=== PATIENT | female | born 1955 | race Two or more races ===

== ENCOUNTER 2020-04-15 15:25 | Emergency (ER) | payer MEDICARE ==
[~2020-04-15] VITALS: Ht 157.5 cm; Wt 92.4 kg
[2020-04-15 16:03] VITALS: BP 161/82
[2020-04-15] MEDS ORDERED: HYDROcodone/acetaminophen 5mg/325mg tablet PO ONE (18:05)
[2020-04-15] MEDS ORDERED: GABA300C PO (18:09)
== END 2020-04-15 18:35 | disposition home or self-care (01) ==
LOC: ER 15:26
DX: M25.512 Pain in left shoulder (principal); I10 Essential (primary) hypertension; E11.9 Type 2 diabetes mellitus without complications; W19.XXXA Unspecified fall, initial encounter; Y93.89 Activity, other specified; Y92.89 Other specified places as the place of occurrence of the external cause; Y99.8 Other external cause status
CPT/HCPCS: 99282; 99283

== ENCOUNTER 2021-12-17 01:48 | Inpatient (IN) | payer MEDICARE ==
[~2021-12-17] VITALS: Ht 154.9 cm; Wt 86.4 kg
[2021-12-17] VITALS (11 sets, daily range): BP systolic 97–199; BP diastolic 45–93
[~2021-12-17 01:48] MED LIST: GABA300C PO
[2021-12-17 02:33] LABS: BASOPHILS # (AUTO) 0.1 X10'3 (0-0.2); BASOPHILS % (AUTO) 0.6 % (0-1); EOSINOPHILS # (AUTO) 0.1 X10'3 (0-0.9); EOSINOPHILS % (AUTO) 1.2 % (0-6); HEMATOCRIT 36.7 % (35.0-45.0); HEMOGLOBIN 12.1 g/dl (12.0-16.0); LYMPHOCYTES # (AUTO) 2.2 X10'3 (1.1-4.8); MEAN CORPUSCULAR HEMOGLOBIN 27.6 PG (27.0-31.0); MEAN CORPUSCULAR VOLUME 83.4 FL (78-98); MEAN PLATELET VOLUME 8.2 FL (7.4-10.4); MONOCYTES # (AUTO) 0.8 X10'3 (0-0.9); MONOCYTES % (AUTO) 6.6 % (2-12); NEUTROPHILS # (AUTO) 8.4 X10'3 (1.8-7.7); NEUTROPHILS % (AUTO) 72.6 % (42-75); PLATELET COUNT 279 X10'3 (140-440); RED CELL DISTRIBUTION WIDTH 13.7 % (11.5-14.5); WHITE BLOOD COUNT 11.5 X10'3 (4.5-11.0)
[2021-12-17 02:47] LABS: ALANINE AMINOTRANSFERASE 40 U/L (12-78); ALBUMIN 3.4 G/DL (3.4-5.0); ALBUMIN/GLOBULIN RATIO 0.9 (1.1-1.5); ALKALINE PHOSPHATASE 81 IU/L (46-116); ANION GAP 10 (8-16); ASPARTATE AMINO TRANSFERASE 20 U/L (10-37); BILIRUBIN,TOTAL 0.6 MG/DL (0.1-1.0); BLOOD UREA NITROGEN 16 MG/DL (7-18); BUN/CREATININE RATIO 21.1 (6.6-38.0); CALCIUM 9.1 MG/DL (8.5-10.1); CHLORIDE 103 MMOL/L (99-107); CREATININE 0.76 MG/DL (0.40-0.90); GLUCOSE 216 MG/DL (70-104); POTASSIUM 3.6 MMOL/L (3.5-5.1); SODIUM 140 MMOL/L (135-145); TOTAL CARBON DIOXIDE 26.8 MMOL/L (24-32); TOTAL PROTEIN 7.3 G/DL (6.4-8.2); eGFR 77 ML/MIN
[2021-12-17] MEDS ORDERED: aspirin 81mg tab.chew PO ONE (04:30)
[2021-12-17] MEDS ORDERED: METF-900 PO (05:05)
[2021-12-17] MEDS ORDERED: BENA40TA73 PO (05:05)
[2021-12-17] MEDS ORDERED: MELO-102 PO (05:05)
[2021-12-17] MEDS ORDERED: ATOR40TA PO (05:05)
[2021-12-17] MEDS ORDERED: morphine 2 MG/ML inj. syringe IV PRN (05:50)
[2021-12-17] MEDS ORDERED: MESSAGE TO PHARMACY PO ONE (05:50)
[2021-12-17] MEDS ORDERED: POTASSIUM BICARB 20meq eff tab 20 MEQ TABLET.EFF PO PRN ×2 (05:50)
[2021-12-17] MEDS ORDERED: magnesium Cl slow-release 64mg tablet PO PRN (05:50)
[2021-12-17] MEDS ORDERED: acetaminophen 325mg tablet PO PRN ×2 (05:50)
[2021-12-17] MEDS ORDERED: potassium CL 10mEq/100ml bag 100 ML IV PRN (05:50)
[2021-12-17] MEDS ORDERED: magnesium hydroxide 30ml (MOM) UD suspension PO PRN (05:50)
[2021-12-17] MEDS ORDERED: HYDROcodone/acetaminophen 10/325mg tab PO PRN (05:50)
[2021-12-17] MEDS ORDERED: magnesium 4gm in 100ml NS 100 ML IV PRN (05:50)
[2021-12-17] MEDS ORDERED: mag hydrox/Alum hydrox/simeth 30ml oral suspension PO PRN (05:50)
[2021-12-17] MEDS ORDERED: ondansetron/PF 4mg/2ml inj IV PRN (05:50)
[2021-12-17] MEDS ORDERED: glucagon, human recombinant 1mg kit SUBCUT PRN (05:50)
[2021-12-17] MEDS ORDERED: magnesium 2GM in 50ml NS 50 ML IV PRN (05:50)
[2021-12-17] MEDS ORDERED: dextrose 50%-water 50ml dispensing syringe IV PRN ×2 (05:50)
[2021-12-17] MEDS ORDERED: DEXTROSE 15 GM of carb/4 tabs (each vial/BOTTLE has 4 tablets) PO PRN ×2 (05:50)
[2021-12-17] MEDS ORDERED: insulin Lispro (HumaLOG) vial - multi-dose SQ SCH (05:50)
[2021-12-17] MEDS ORDERED: regadenoson 0.4mg/5ml syringe IV PRN (05:55)
[2021-12-17] MEDS ORDERED: aminophylline 250mg/10ml inj. IV PRN (05:55)
[2021-12-17] MEDS ORDERED: nitroGLYCERIN 0.4mg SUBLingual tab SL PRN (05:55)
[2021-12-17 07:08] LABS: MAGNESIUM 1.6 MG/DL (1.5-2.4)
[2021-12-17] MEDS: enoxaparin 40mg/0.4ml syringe SUBCUT SCH (07:09)
[2021-12-17] MEDS: docusate sod 100mg capsule PO SCH ×2 (07:09→19:47)
[2021-12-17] MEDS: atorvastatin 20mg tablet PO SCH (07:09)
[2021-12-17] MEDS: lisinopril 20mg tablet PO SCH (07:10)
[2021-12-17] MEDS: cloNIDine 0.1 mg tablet PO PRN ×2 (07:13→14:46)
[2021-12-17] MEDS: K and/or MAG REPLACEMENT MC SCH ×2 (08:00→19:46)
[2021-12-17] MEDS: MELOXICAM PO SCH (08:00)
[2021-12-17] MEDS: METFORMIN HCL PO SCH (08:00)
[2021-12-17 08:10] LABS: HEMOGLOBIN A1C 7.4 % (4.5-6.2)
--- NOTE | 2021-12-17 11:55 | NUR ---
ATTEMPT TO CALL REPORT TO ACCEPTING NURSE ON PCU. NURSE WILL CALL BACK WHEN AVAILABLE.
--- NOTE | 2021-12-17 12:25 | NUR ---
pt to go to nuc med for stress test, BP is 207/106, pt c/o "little headache", no chest pain/discomfort, no SOB, no n/v, no blurred vision, no dizziness, family at bedside to help intrepret as pt is bel[place]ian speaking only. Medicated per prn order for stress test
[2021-12-17] MEDS: metoprolol tartrate 1mg/ml inj IV PRN ×2 (12:28→12:58)
--- NOTE | 2021-12-17 12:45 | NUR ---
REPORT TO [facility] PAULA
[2021-12-17] MEDS ORDERED: aminophylline 500mg/20ml vial ONE (13:11)
[2021-12-17] MEDS ORDERED: CARCD120C PO (14:05)
[2021-12-17] MEDS ORDERED: METF-436 PO (14:05)
[2021-12-17] MEDS: HYDROcodone/acetaminophen 5mg/325mg tablet PO PRN ×2 (14:46→23:47)
--- NOTE | 2021-12-17 14:55 | NUR ---
PAGER ID: [phone] MESSAGE: Room: 4302B: Charity King: Their stress test is complete. Can they resume their diet? PAULA Kaufman [phone]
--- NOTE | 2021-12-17 15:15 | NUR ---
PAGER ID: [phone] MESSAGE: Room: 8162B: Fernando Charity: The pt's daughter would like to have you come to the bedside to review the pt's stress test with her and the pt. PAULA Kaufman [phone]
--- NOTE | 2021-12-17 16:20 | NUR ---
PAGER ID: [phone] MESSAGE: Room: 2932B: Charity King: Second page: Are you able to review the patient's plan of care with the patient and their family at the bedside? PAULA Kaufman [phone]
[2021-12-17] MEDS ORDERED: insulin glargine (Lantus) pen - multi-dose SQ SCH (21:00)
[2021-12-18 02:00] VITALS: BP 104/42
[2021-12-18 06:00] VITALS: BP 119/64
--- NOTE | 2021-12-18 06:08 | NUR ---
Change of shift report given to RN Shae. issues reprioritized. patient stable. No acute complaints
[2021-12-18 06:56] LABS: BASOPHILS # (AUTO) 0.1 X10'3 (0-0.2); BASOPHILS % (AUTO) 0.6 % (0-1); EOSINOPHILS # (AUTO) 0.1 X10'3 (0-0.9); EOSINOPHILS % (AUTO) 1.3 % (0-6); HEMATOCRIT 35.3 % (35.0-45.0); HEMOGLOBIN 11.8 g/dl (12.0-16.0); LYMPHOCYTES # (AUTO) 2.3 X10'3 (1.1-4.8); LYMPHOCYTES % (AUTO) 26.4 % (21-51); MEAN CORPUSCULAR HEMOGLOBIN 27.9 PG (27.0-31.0); MEAN CORPUSCULAR HGB CONC 33.4 g/dL (33.0-36.5); MEAN CORPUSCULAR VOLUME 83.7 FL (78-98); MEAN PLATELET VOLUME 8.4 FL (7.4-10.4); MONOCYTES % (AUTO) 11.9 % (2-12); NEUTROPHILS # (AUTO) 5.1 X10'3 (1.8-7.7); NEUTROPHILS % (AUTO) 59.8 % (42-75); PLATELET COUNT 245 X10'3 (140-440); RED BLOOD COUNT 4.22 X10'6 (4.20-5.60); RED CELL DISTRIBUTION WIDTH 14.2 % (11.5-14.5); WHITE BLOOD COUNT 8.6 X10'3 (4.5-11.0)
[2021-12-18] MEDS: METFORMIN HCL PO SCH (07:35)
[2021-12-18] MEDS: MELOXICAM PO SCH (07:35)
[2021-12-18] MEDS: enoxaparin 40mg/0.4ml syringe SUBCUT SCH (07:45)
[2021-12-18] MEDS: HYDROcodone/acetaminophen 5mg/325mg tablet PO PRN (07:49)
[2021-12-18] MEDS: docusate sod 100mg capsule PO SCH (07:49)
[2021-12-18 07:50] VITALS: BP_SYST 119
[2021-12-18] MEDS: lisinopril 20mg tablet PO SCH (07:50)
[2021-12-18] MEDS: atorvastatin 20mg tablet PO SCH (07:50)
[2021-12-18 07:57] LABS: ALANINE AMINOTRANSFERASE 31 U/L (12-78); ALBUMIN 2.8 G/DL (3.4-5.0); ALBUMIN/GLOBULIN RATIO 0.8 (1.1-1.5); ALKALINE PHOSPHATASE 68 IU/L (46-116); ANION GAP 7 (8-16); ASPARTATE AMINO TRANSFERASE 20 U/L (10-37); BILIRUBIN,TOTAL 0.7 MG/DL (0.1-1.0); BLOOD UREA NITROGEN 15 MG/DL (7-18); BUN/CREATININE RATIO 19.2 (6.6-38.0); CALCIUM 8.7 MG/DL (8.5-10.1); CHLORIDE 104 MMOL/L (99-107); CREATININE 0.78 MG/DL (0.40-0.90); GLUCOSE 145 MG/DL (70-104); POTASSIUM 3.8 MMOL/L (3.5-5.1); SODIUM 138 MMOL/L (135-145); TOTAL CARBON DIOXIDE 26.9 MMOL/L (24-32); TOTAL PROTEIN 6.3 G/DL (6.4-8.2); eGFR 74 ML/MIN
[2021-12-18] MEDS: K and/or MAG REPLACEMENT MC SCH (08:00)
[2021-12-18 08:18] LABS: CHOLESTEROL 123 MG/DL (0-200); HDL CHOLESTEROL 41 MG/DL (35-60); LDL CHOLESTEROL 56 MG/DL (50-100); TRIGLYCERIDES 136 MG/DL (20-135)
--- NOTE | 2021-12-18 09:52 | NUR ---
Diabetes consult: Noted pt w/ hx of DM A1c 7.4. Pt is noted to only be Cuban speaking, no family member at bedside at time of assessment: Written [place] DM ed w/ RD contact info placed in pt chart. Addendum: 12/18/21 at [address] Amended: Links added.
--- NOTE | 2021-12-18 10:15 | NUR ---
Pt discharged to home from the hospital. Discharge paperwork reviewed with the patient and their family. No discharge medications were given to the pt. Telemetry and PIV removed at the time of discharge. Belongings were sent home with the pt.
== END 2021-12-18 10:15 | disposition home or self-care (01) | DRG 305 ==
LOC: ER 01:49 → ED HOLD 05:51 → CANBEDREQ 10:28 → PCU 3S 15:35
PROVIDERS: ADMIT Internal Medicine; ATTEND Internal Medicine
PROC: 4A02XM4 Measurement of Cardiac Total Activity, External Approach (ICD-10-PCS; principal; 2021-12-17)
PROC: 3E033HZ Introduction of Radioactive Substance into Peripheral Vein, Percutaneous Approach (ICD-10-PCS; 2021-12-17)
DX: I16.0 Hypertensive urgency (principal); R07.89 Other chest pain; E78.00 Pure hypercholesterolemia, unspecified; I10 Essential (primary) hypertension; E78.5 Hyperlipidemia, unspecified; I95.9 Hypotension, unspecified; I08.1 Rheumatic disorders of both mitral and tricuspid valves; E11.9 Type 2 diabetes mellitus without complications; Z79.84 Long term (current) use of oral hypoglycemic drugs; Z79.899 Other long term (current) drug therapy; Z90.49 Acquired absence of other specified parts of digestive tract
CPT/HCPCS: 36415; 71045; 78452; 80053; 80061; 82948; 83036; 83735; 83880; 84484; 85025; 85379; 87081; 93005; 93017; 93306; 99285; A9500; G0378; J0280; J1650; J1815; J2405; J3490

== ENCOUNTER 2023-09-30 13:18 | Outpatient (CLI) | payer MEDICARE, MEDICAID ==
[~2023-09-30 13:18] MED LIST changes: +ATOR40TA PO; +BENA40TA73 PO; +CARCD120C PO; -GABA300C PO; +MELO-102 PO; +METF-436 PO
== END 2023-09-30 23:59 | disposition home or self-care (01) ==
LOC: RAD 13:18
PROVIDERS: ATTEND Physician Assistant
DX: M65.342 Trigger finger, left ring finger (principal)
CPT/HCPCS: 73130

== ENCOUNTER 2023-11-16 14:59 | Outpatient (CLI) | payer MEDICARE, MEDICAID | END 2023-11-16 23:59 | disposition home or self-care (01) | LOC: RAD 14:59 | PROVIDERS: ATTEND Podiatrist | DX: M79.674 Pain in right toe(s) (principal); M77.31 Calcaneal spur, right foot | CPT/HCPCS: 73630 ==

== ENCOUNTER 2024-07-13 19:25 | Emergency (ER) | payer MEDICARE, OTHER ==
[~2024-07-13] VITALS: Ht 157.5 cm; Wt 85.5 kg
[2024-07-13 19:27] VITALS: BP 166/78; PULSE 79; TEMP 98; O2SAT 96
[2024-07-13 21:37] VITALS: RESP 16
[2024-07-13] MEDS: ketorolac trometh 15mg/ml vial 15 MG/ML ML IM ONE (21:37)
== END 2024-07-13 22:55 | disposition home or self-care (01) ==
LOC: ER 19:26
DX: M79.672 Pain in left foot (principal); M25.562 Pain in left knee; E78.00 Pure hypercholesterolemia, unspecified; I10 Essential (primary) hypertension; E11.9 Type 2 diabetes mellitus without complications; Z79.899 Other long term (current) drug therapy; Z90.49 Acquired absence of other specified parts of digestive tract; Z98.890 Other specified postprocedural states; X50.1XXA Overexertion from prolonged static or awkward postures, initial encounter; Y93.89 Activity, other specified; Y92.89 Other specified places as the place of occurrence of the external cause; Y99.8 Other external cause status
CPT/HCPCS: 73564; 73610; 96372; 99284; A6449; J1885